=== PATIENT | male | born 1965 | race Caucasian/White ===

== ENCOUNTER 2016-08-25 10:00 | Day surgery (SDC) | payer BC ==
[~2016-08-25] VITALS: Ht 170.2 cm; Wt 87.1 kg
[~2016-08-25 10:00] MED LIST: ASPIR-LOW81 MG PO; ATORVASTATIN CA40 MG PO; NEXIUM40 MG PO; NITROGLYCERIN0.4 MG SL; TOPROL XL50 MG PO
[2016-08-25] MEDS ORDERED: NICODERM CQ1 EAC2 TD (12:21)
[2016-08-25] MEDS ORDERED: LISINOPRIL10 MG PO (12:21)
== END 2016-08-25 16:20 | disposition home or self-care (01) ==
LOC: CATH 10:00
DX: I25.10 Atherosclerotic heart disease of native coronary artery without angina pectoris (principal); I25.84 Coronary atherosclerosis due to calcified coronary lesion; I25.82 Chronic total occlusion of coronary artery; I10 Essential (primary) hypertension; K21.9 Gastro-esophageal reflux disease without esophagitis; E78.2 Mixed hyperlipidemia; E66.9 Obesity, unspecified; Z68.30 Body mass index [BMI] 30.0-30.9, adult; F17.200 Nicotine dependence, unspecified, uncomplicated; Z79.82 Long term (current) use of aspirin
CPT/HCPCS: C1769; C1887; J1200; J1644; J2250; J3010

== ENCOUNTER 2017-07-31 05:53 | Emergency (ER) | payer OTHER ==
[~2017-07-31] VITALS: Ht 172.7 cm; Wt 93.3 kg
[~2017-07-31 05:53] MED LIST changes: +LISINOPRIL10 MG PO; +NICODERM CQ1 EAC2 TD
[2017-07-31 10:13] VITALS: BP 145/88
== END 2017-07-31 10:15 | disposition home or self-care (01) ==
LOC: EME 05:53
DX: S61.211A Laceration without foreign body of left index finger without damage to nail, initial encounter (principal); S61.213A Laceration without foreign body of left middle finger without damage to nail, initial encounter; W31.1XXA Contact with metalworking machines, initial encounter; Y99.0 Civilian activity done for income or pay; Z23 Encounter for immunization; F17.210 Nicotine dependence, cigarettes, uncomplicated; Z79.82 Long term (current) use of aspirin
CPT/HCPCS: 73130; 99281; 99284